=== PATIENT | male | born 1965 | race Caucasian/White ===

== ENCOUNTER 2022-09-03 13:53 | Emergency (ER) | payer BC, MEDICAID ==
[~2022-09-03] VITALS: Ht 180.3 cm; Wt 120.2 kg
--- NOTE | 2022-09-03 13:53 | NUR ---
BROUGHT BACK TO BED #1 AND TRIAGED. REPORT GIVEN TO RADHA
[2022-09-03 13:55] VITALS: BP_SYST 174
--- NOTE | 2022-09-03 13:59 | NUR ---
DR DAVIS AT BEDSIDE FOR EVALUATION
[2022-09-03] MEDS ORDERED: LIDOCAINE 1% 10 MG/ML, 20 ML MDV INJ ONE (14:15)
[2022-09-03] MEDS ORDERED: DIPHTH,PERTUSS(ACELL),TET VAC 0.5 ML VIAL (Tdap) I.M. ONE (14:15)
[2022-09-03] MEDS ORDERED: BACITRACIN 1 GM OINT TP ONE (14:15)
--- NOTE | 2022-09-03 14:37 | NUR ---
DR DAVIS AT BEDSIDE PERFORMING SUTURING
[2022-09-03 15:45] VITALS: BP_SYST 169
--- NOTE | 2022-09-03 15:45 | NUR ---
Patient does not wish to proceed with medical care recommended by . Patient given information related to possible complications, up to and including , which could occur as a result of leaving hospital at this time. Patient verbalizes understanding of risks involved leaving against medical advice. Patient has signed AMA form.
== END 2022-09-03 15:45 | disposition left against medical advice (07) ==
LOC: SED 13:53
DX: S61.211A Laceration without foreign body of left index finger without damage to nail, initial encounter (principal); J45.909 Unspecified asthma, uncomplicated; I10 Essential (primary) hypertension; Z79.899 Other long term (current) drug therapy; W31.2XXA Contact with powered woodworking and forming machines, initial encounter; Y93.89 Activity, other specified; Y92.89 Other specified places as the place of occurrence of the external cause; Y99.8 Other external cause status
CPT/HCPCS: 99283; 90715; 90471; 12004; J2001